=== PATIENT | female | born 1995 | race Caucasian/White ===

== ENCOUNTER 2017-09-01 22:37 | Emergency (ER) | payer OTHER ==
[2017-09-02] MEDS: ONDANSETRON 4 MG INJ IV (00:55)
[2017-09-02] MEDS: morphine 4 MG/ML VIAL IV (00:59)
[2017-09-02 01:18] LABS: ADD MAN DIFF? NO; ADD UMIC YES; UR ASCORBIC ACID 40 mg/dL (NEGATIVE); UR BILIRUBIN (Dip) 1+ mg/dL (NEGATIVE); UR BLOOD (Dip) NEGATIVE (NEGATIVE); UR CLARITY SLIGHTLY CLOUDY (CLEAR); UR COLOR YELLOW (YELLOW); UR GLUCOSE (Dip) NEGATIVE (NEGATIVE); UR KETONES (Dip) TRACE mg/dL (NEGATIVE); UR LEUKOCYTE ESTERASE (Dip) NEGATIVE Leu/ul (NEGATIVE); UR MUCUS MODERATE /HPF (NONE SEEN); UR NITRITE (Dip) NEGATIVE (NEGATIVE); UR RBC 1 /HPF (0-5); UR SQUAMOUS EPITHELIAL CELL FEW /HPF (FEW); UR TOTAL PROTEIN (Dip) 1+ mg/dl (NEGATIVE); UR UROBILINOGEN (Dip) 1+ mg/dL (NEGATIVE); UR WBC 1 /HPF (0-5)
[2017-09-02 01:20] LABS: BASOPHILS % 0.4 % (0.0-2.0); EOSINOPHILS # 0.1 10^3/ul (0.0-0.5); EOSINOPHILS % 0.7 % (0.0-7.0); HEMATOCRIT 38.5 % (37.0-47.0); HEMOGLOBIN 12.6 g/dl (12.0-16.0); LYMPHOCYTES # 3.4 10^3/ul (0.8-2.9); MEAN CORPUSCULAR HEMOGLOBIN 26.4 pg (29.0-33.0); MEAN CORPUSCULAR HGB CONC 32.7 g/dl (32.0-37.0); MEAN CORPUSCULAR VOLUME 80.5 fl (82.0-101.0); MEAN PLATELET VOLUME 11.3 fl (7.4-10.4); MONOCYTE # 0.6 10^3/ul (0.3-0.9); MONOCYTES % 6.2 % (0.0-11.0); NEUTROPHIL # 6.1 10^3/ul (1.6-7.5); NEUTROPHILS % 59.3 % (39.0-77.0); PLATELET COUNT 232 10^3/UL (140-415); RED BLOOD COUNT 4.78 10^6/ul (4.20-5.40); RED CELL DISTRIBUTION WIDTH 13.8 % (11.5-14.5)
[2017-09-02 01:20] LABS: WHITE BLOOD COUNT 10.2 10^3/ul (4.8-10.8)
[2017-09-02 01:37] LABS: INR 0.87; PROTIME 11.9 Sec (11.9-14.9); PT RATIO 0.9
[2017-09-02 01:38] LABS: PARTIAL THROMBOPLASTIN TIME 33.1 Sec (25.0-35.0)
[2017-09-02 01:40] LABS: ALANINE AMINOTRANSFERASE 42 IU/L (13-69); ALBUMIN 4.6 g/dl (3.3-4.9); ALBUMIN/GLOBULIN RATIO 1.24; ALKALINE PHOSPHATASE 87 IU/L (42-121); ANION GAP 17 (8-16); ASPARTATE AMINO TRANSFERASE 35 IU/L (15-46); BILIRUBIN,INDIRECT 0.1 mg/dl (0-1.1); BILIRUBIN,TOTAL 0.1 mg/dl (0.2-1.3); BLOOD UREA NITROGEN 11 mg/dl (7-20); CALCIUM 9.5 mg/dl (8.4-10.2); CARBON DIOXIDE 26 mmol/L (21-31); CHLORIDE 104 mmol/L (97-110); CREATININE 0.71 mg/dl (0.44-1.00); GLUCOSE 96 mg/dl (70-220); LIPASE 90 U/L (23-300); SODIUM 143 mmol/L (135-144); TOTAL PROTEIN 8.3 g/dl (6.1-8.1)
[2017-09-02 03:31] LABS: ADD MAN DIFF? NO
[2017-09-02 03:49] LABS: WHITE BLOOD COUNT 9.8 10^3/ul (4.8-10.8)
[2017-09-02 03:49] LABS: BASOPHILS % 0.4 % (0.0-2.0); EOSINOPHILS % 0.4 % (0.0-7.0); HEMATOCRIT 35.6 % (37.0-47.0); LYMPHOCYTES # 2.6 10^3/ul (0.8-2.9); LYMPHOCYTES % 26.3 % (15.0-51.0); MEAN CORPUSCULAR HEMOGLOBIN 27.3 pg (29.0-33.0); MEAN CORPUSCULAR HGB CONC 33.7 g/dl (32.0-37.0); MEAN CORPUSCULAR VOLUME 80.9 fl (82.0-101.0); MEAN PLATELET VOLUME 11.2 fl (7.4-10.4); MONOCYTE # 0.6 10^3/ul (0.3-0.9); MONOCYTES % 5.6 % (0.0-11.0); NEUTROPHIL # 6.5 10^3/ul (1.6-7.5); NEUTROPHILS % 67.1 % (39.0-77.0); PLATELET COUNT 206 10^3/UL (140-415); RED CELL DISTRIBUTION WIDTH 13.9 % (11.5-14.5)
[2017-09-02] MEDS ORDERED: morphine 4 MG/ML VIAL IV (03:51)
[2017-09-02] MEDS: KETOROLAC 30 MG INJ IV (04:13)
== END 2017-09-02 04:30 | disposition home or self-care (01) ==
LOC: FTE 22:37
DX: N83.201 Unspecified ovarian cyst, right side (principal)
CPT/HCPCS: 36415; 74176; 76830; 76856; 80053; 81001; 83690; 85025; 85610; 85730; 87591; 96374; 96375; 99285-25

== ENCOUNTER 2017-11-15 15:52 | Inpatient (IN) | payer OTHER ==
[2017-11-15 18:00] LABS: ADD UMIC YES; UR ASCORBIC ACID NEGATIVE (NEGATIVE); UR BILIRUBIN (Dip) NEGATIVE (NEGATIVE); UR BLOOD (Dip) 3+ mg/dL (NEGATIVE); UR CLARITY SLIGHTLY CLOUDY (CLEAR); UR COLOR YELLOW (YELLOW); UR GLUCOSE (Dip) NEGATIVE (NEGATIVE); UR KETONES (Dip) NEGATIVE (NEGATIVE); UR LEUKOCYTE ESTERASE (Dip) NEGATIVE Leu/ul (NEGATIVE); UR NITRITE (Dip) NEGATIVE (NEGATIVE); UR RBC > 182 /HPF (0-5); UR SPECIFIC GRAVITY (Dip) 1.016 (1.003-1.030); UR SQUAMOUS EPITHELIAL CELL FEW /HPF (FEW); UR TOTAL PROTEIN (Dip) NEGATIVE (NEGATIVE); UR UROBILINOGEN (Dip) NEGATIVE (NEGATIVE); UR WBC 4 /HPF (0-5)
[2017-11-15 18:38] LABS: ADD MAN DIFF? NO
[2017-11-15 18:41] LABS: WHITE BLOOD COUNT 7.8 10^3/ul (4.8-10.8)
[2017-11-15 18:41] LABS: BASOPHILS % 0.5 % (0.0-2.0); EOSINOPHILS # 0.1 10^3/ul (0.0-0.5); EOSINOPHILS % 1.3 % (0.0-7.0); HEMATOCRIT 38.4 % (37.0-47.0); HEMOGLOBIN 12.7 g/dl (12.0-16.0); LYMPHOCYTES # 3.3 10^3/ul (0.8-2.9); LYMPHOCYTES % 41.9 % (15.0-51.0); MEAN CORPUSCULAR HEMOGLOBIN 26.8 pg (29.0-33.0); MEAN CORPUSCULAR HGB CONC 33.1 g/dl (32.0-37.0); MEAN PLATELET VOLUME 10.8 fl (7.4-10.4); MONOCYTE # 0.4 10^3/ul (0.3-0.9); MONOCYTES % 5.2 % (0.0-11.0); PLATELET COUNT 269 10^3/UL (140-415); RED BLOOD COUNT 4.74 10^6/ul (4.20-5.40); RED CELL DISTRIBUTION WIDTH 13.2 % (11.5-14.5)
[2017-11-15] MEDS: SOD CHLORIDE 0.9% 1,000 ML IV (21:35)
[2017-11-15 22:02] LABS: INR 0.93; PROTIME 12.5 Sec (11.9-14.9)
[2017-11-15 22:03] LABS: PARTIAL THROMBOPLASTIN TIME 35.5 Sec (25.0-35.0)
[2017-11-16] MEDS ORDERED: PROPOFOL 20 ML (05:38)
[2017-11-16] MEDS ORDERED: NEOSTIGMINE 3 MG/3 ML SYRINGE (05:38)
[2017-11-16] MEDS ORDERED: ROCURONIUM 50 MG INJ (05:38)
[2017-11-16] MEDS ORDERED: GLYCOPYRROLATE 0.4 MG INJ (05:38)
[2017-11-16] MEDS ORDERED: CEFAZOLIN 1 GM INJ (05:38)
[2017-11-16] MEDS ORDERED: MIDAZOLAM 1 MG/ML 2 ML INJ (05:42)
[2017-11-16] MEDS ORDERED: ONDANSETRON 4 MG INJ (05:42)
[2017-11-16] MEDS ORDERED: DEXAMETHASONE 4 MG/ML 1 ML INJ (05:42)
[2017-11-16] MEDS ORDERED: FENTAnyl 50 MCG/ML VIAL ×2 (05:42→06:19)
[2017-11-16] MEDS ORDERED: MEPERIDINE 25 MG INJ IV (06:30)
[2017-11-16] MEDS ORDERED: FENTAnyl 50 MCG/ML VIAL IV ×2 (06:30)
[2017-11-16] MEDS ORDERED: MIDAZOLAM 1 MG/ML 2 ML INJ IV (06:30)
[2017-11-16] MEDS ORDERED: HYDROmorphONE (0.2 MG/ML) 10ML SYG IV ×2 (06:30)
[2017-11-16] MEDS ORDERED: LABETALOL HCL 20MG INJ IV (06:30)
[2017-11-16] MEDS ORDERED: ALBUTEROL 0.083% (NEB) 2.5 MG/3 ML AMP HHN (06:30)
[2017-11-16] MEDS ORDERED: TRIMETHOBENZAMIDE 100 MG/ML VIAL IM (06:30)
[2017-11-16] MEDS ORDERED: hydrALAzine 20 MG INJ IV (06:30)
[2017-11-16] MEDS ORDERED: OXYCODONE/ACETAMINOPHEN (5/325) TAB PO ×2 (06:30)
[2017-11-16] MEDS ORDERED: DIPHENHYDRAMINE 50 MG INJ IV (06:30)
[2017-11-16] MEDS ORDERED: EPHEDrine SULFATE 50 MG/5 ML SYG IV (06:30)
[2017-11-16] MEDS ORDERED: IPRATROPIUM (NEB) 0.5 MG/2.5 ML AMP HHN (06:30)
[2017-11-16] MEDS ORDERED: KETOROLAC 30 MG INJ (06:42)
[2017-11-16] MEDS ORDERED: METOCLOPRAMIDE 10 MG INJ (06:57)
[2017-11-16] MEDS ORDERED: SUCCINYLCHOLINE CHLORIDE 100 MG/5 ML SYG IV (07:00)
[2017-11-16] MEDS: FENTAnyl 50 MCG/ML VIAL IV (07:21)
[2017-11-16] MEDS: HYDROmorphONE (0.2 MG/ML) 10ML SYG IV (07:41)
[2017-11-16] MEDS: ONDANSETRON 4 MG INJ IV ×2 (07:41→14:39)
[2017-11-16] MEDS ORDERED: IBUPROFEN 600 MG TAB GTB (08:30)
[2017-11-16] MEDS ORDERED: ONDANSETRON 4 MG INJ IV (08:30)
[2017-11-16] MEDS: SOD CHLORIDE 0.45% 1,000 ML IV ×3 (08:58→17:04)
[2017-11-16] MEDS: IBUPROFEN 600 MG TAB PO ×2 (09:58→18:57)
[2017-11-16] MEDS ORDERED: LACTATED RINGER'S 1,000 ML IV (10:59)
[2017-11-16] MEDS: HYDROCODONE/APAP (5/325) TAB PO (13:21)
[2017-11-16] MEDS: CEFAZOLIN 2 GM/50 ML (PMX) 50 ML IVPB ×2 (13:21→22:12)
[2017-11-16] MEDS ORDERED: CEFAZOLIN 2 GM/50 ML (PMX) 50 ML IVPB (14:00)
[2017-11-16] MEDS ORDERED: IBUPROFEN 600 MG TAB PO (14:30)
[2017-11-16] MEDS: ACETAMINOPHEN 325 MG TAB PO (22:11)
[2017-11-17] MEDS: ACETAMINOPHEN 325 MG TAB PO ×3 (02:29→14:34)
[2017-11-17 05:45] LABS: ADD MAN DIFF? NO
[2017-11-17 05:49] LABS: BASOPHILS % 0.2 % (0.0-2.0); HEMATOCRIT 32.3 % (37.0-47.0); HEMOGLOBIN 10.9 g/dl (12.0-16.0); LYMPHOCYTES # 2.3 10^3/ul (0.8-2.9); MEAN CORPUSCULAR HEMOGLOBIN 26.8 pg (29.0-33.0); MEAN CORPUSCULAR HGB CONC 33.7 g/dl (32.0-37.0); MEAN CORPUSCULAR VOLUME 79.6 fl (82.0-101.0); MEAN PLATELET VOLUME 11.1 fl (7.4-10.4); MONOCYTE # 0.6 10^3/ul (0.3-0.9); MONOCYTES % 6.2 % (0.0-11.0); NEUTROPHIL # 7.4 10^3/ul (1.6-7.5); NEUTROPHILS % 71.3 % (39.0-77.0); PLATELET COUNT 219 10^3/UL (140-415); RED BLOOD COUNT 4.06 10^6/ul (4.20-5.40); RED CELL DISTRIBUTION WIDTH 13.2 % (11.5-14.5)
[2017-11-17 05:49] LABS: WHITE BLOOD COUNT 10.3 10^3/ul (4.8-10.8)
[2017-11-17] MEDS: CEFAZOLIN 2 GM/50 ML (PMX) 50 ML IVPB (06:21)
[2017-11-17] MEDS: IBUPROFEN 600 MG TAB PO (07:39)
[2017-11-17] MEDS: SOD CHLORIDE 0.45% 1,000 ML IV ×2 (08:30→16:30)
[2017-11-17] MEDS: OXYCODONE/ACETAMINOPHEN (5/325) TAB PO (17:31)
== END 2017-11-17 20:40 | disposition home or self-care (01) | DRG 777 ==
LOC: MS1 11-16 00:01 → FTE 15:52 → MS1 11-16 02:44
PROC: 10T20ZZ Resection of Products of Conception, Ectopic, Open Approach (ICD-10-PCS; principal; 2017-11-16 05:30)
PROC: 0UT60ZZ Resection of Left Fallopian Tube, Open Approach (ICD-10-PCS; 2017-11-16 05:30)
PROC: 0UB50ZZ Excision of Right Fallopian Tube, Open Approach (ICD-10-PCS; 2017-11-16 05:30)
DX: O00.102 Left tubal pregnancy without intrauterine pregnancy (principal); N83.8 Other noninflammatory disorders of ovary, fallopian tube and broad ligament; O99.331 Smoking (tobacco) complicating pregnancy, first trimester; F17.200 Nicotine dependence, unspecified, uncomplicated; Z3A.01 Less than 8 weeks gestation of pregnancy
CPT/HCPCS: 36415; 76801; 76817; 81001; 84702; 85025; 85610; 85730; 86900; 86901; 88305; 96360; 99285-25